=== PATIENT | male | born 1960 | race Caucasian/White ===

== ENCOUNTER 2019-08-09 06:08 | Day surgery (SDC) | payer MEDICARE ==
[2019-08-09] VITALS (21 sets, daily range): BP systolic 152–177; BP diastolic 68–103
[~2019-08-09] VITALS: Ht 177.8 cm; Wt 72.7 kg
[2019-08-09] MEDS ORDERED: DILT180C53 PO (06:49)
[2019-08-09] MEDS ORDERED: PRED1TAB PO (06:49)
[2019-08-09] MEDS ORDERED: FOLI20CA PO (06:49)
[2019-08-09] MEDS ORDERED: DIAZ10TA4 PO (06:49)
[2019-08-09] MEDS ORDERED: CALC667C5 PO (06:49)
[2019-08-09] MEDS ORDERED: [UNRECOGNIZED DRUG - CODE] PO (06:49)
[2019-08-09] MEDS ORDERED: GABA-530 PO (06:49)
[2019-08-09] MEDS ORDERED: normal saline 1000ml 1,000 ML IV SCH (07:05)
[2019-08-09 07:35] LABS: BASOPHILS % (AUTO) 0.2 % (0-1); EOSINOPHILS # (AUTO) 0.9 X10'3 (0-0.9); EOSINOPHILS % (AUTO) 6.2 % (0-6); HEMATOCRIT 33.5 % (42.0-52.0); HEMOGLOBIN 11.1 g/dl (14.0-17.9); LYMPHOCYTES # (AUTO) 1.3 X10'3 (1.1-4.8); LYMPHOCYTES % (AUTO) 8.7 % (21-51); MEAN CORPUSCULAR HEMOGLOBIN 30.6 PG (27.0-31.0); MEAN CORPUSCULAR HGB CONC 33.1 g/dL (33.0-36.5); MEAN CORPUSCULAR VOLUME 92.5 FL (78-98); MEAN PLATELET VOLUME 9.6 FL (7.4-10.4); MONOCYTES # (AUTO) 1.2 X10'3 (0-0.9); MONOCYTES % (AUTO) 8.4 % (2-12); NEUTROPHILS # (AUTO) 11.2 X10'3 (1.8-7.7); NEUTROPHILS % (AUTO) 76.5 % (42-75); PLATELET COUNT 284 X10'3 (140-440); RED BLOOD COUNT 3.62 X10'6 (4.70-6.10); RED CELL DISTRIBUTION WIDTH 13.3 % (11.5-14.5); WHITE BLOOD COUNT 14.6 X10'3 (4.5-11.0)
[2019-08-09] MEDS ORDERED: heparin 1,000 UNITS/NS 500ml 500 ML ICATH ONE (08:15)
[2019-08-09] MEDS ORDERED: LIDOcaine 1%/PF 5ML 10 MG/ML VIAL SQ ONE (08:15)
[2019-08-09] MEDS ORDERED: fentaNYL/PF 50MCG/1 ML 2ML syringe IV PRN (08:15)
[2019-08-09] MEDS ORDERED: midazolam 2 mg/2 ml injection IV PRN (08:15)
[2019-08-09] MEDS ORDERED: midazolam 2 mg/2 ml injection ONE ×3 (08:38→09:30)
[2019-08-09] MEDS ORDERED: LIDOcaine 1%/PF 5ML 10 MG/ML VIAL ONE (08:38)
[2019-08-09] MEDS ORDERED: fentaNYL/PF 50MCG/1 ML 2ML syringe ONE ×3 (08:39→09:31)
[2019-08-09] MEDS ORDERED: iohexol 300mg/ml 100ml inj. ONE ×2 (08:39→09:44)
[2019-08-09] MEDS ORDERED: heparin 1,000 UNITS/NS 500ml 500 ML ONE (08:39)
[2019-08-09] MEDS ORDERED: HYDROcodone/acetaminophen 5mg/325mg tablet PO ONE (10:35)
== END 2019-08-09 12:05 | disposition home or self-care (01) ==
LOC: SSTAY O 06:08
PROVIDERS: ATTEND Radiology Vascular & Interventional Radiology
DX: T82.858A Stenosis of other vascular prosthetic devices, implants and grafts, initial encounter (principal); I12.0 Hypertensive chronic kidney disease with stage 5 chronic kidney disease or end stage renal disease; N18.6 End stage renal disease; Z99.2 Dependence on renal dialysis; F17.200 Nicotine dependence, unspecified, uncomplicated; Z98.890 Other specified postprocedural states; Z88.8 Allergy status to other drugs, medicaments and biological substances; Z88.1 Allergy status to other antibiotic agents; Z79.899 Other long term (current) drug therapy; Y83.8 Other surgical procedures as the cause of abnormal reaction of the patient, or of later complication, without mention of misadventure at the time of the procedure; Y92.89 Other specified places as the place of occurrence of the external cause
CPT/HCPCS: 36415; 36901; 85025; 99152; 99153; C1769; C1894; J1644; J2250; J3010; J7030; Q9967